=== PATIENT | female | born 1965 | race Caucasian/White ===

== ENCOUNTER 2023-05-03 23:19 | Emergency (ER) | payer MEDICAID ==
[~2023-05-03] VITALS: Ht 180.3 cm; Wt 106.4 kg
[2023-05-04 00:08] VITALS: BP 137/84; PULSE 75; RESP 12; O2SAT 95
== END 2023-05-04 07:47 | disposition home or self-care (01) ==
LOC: ER 05-04 00:22
DX: S13.4XXA Sprain of ligaments of cervical spine, initial encounter (principal); M25.512 Pain in left shoulder; M54.2 Cervicalgia; M62.838 Other muscle spasm; Z88.8 Allergy status to other drugs, medicaments and biological substances; V98.8XXA Other specified transport accidents, initial encounter; Y93.89 Activity, other specified; Y92.89 Other specified places as the place of occurrence of the external cause; Y99.8 Other external cause status
CPT/HCPCS: 99281